=== PATIENT | male | born 1995 | race Caucasian/White ===

== ENCOUNTER 2021-02-20 21:25 | Emergency (ER) | payer BC ==
--- NOTE | 2021-02-20 21:41 | EDM.PDOC ---
ED HPI GENERAL MEDICAL PROBLEM - General Chief Complaint: ENT Problem Stated Complaint: POSSIBLE BROKEN NOSE Time Seen by Provider: 02/20/21 21:40 Source of Information: Reports: Patient History Limitations: Reports: No Limitations - History of Present Illness INITIAL COMMENTS - FREE TEXT/NARRATIVE: Jef is a 25 year old male who presents to ER with pain to the bridge of his no se. Was playing baseball this evening, up to bat, when he was struck by the pitch. States was wearing helmet and some of the ball did deflect off the helmet and the rest hit him to the left side of his nose. "took me to my knees but did not lose consciousness, just from the pain". Had a bloody nose after the event but that has now stopped. Worried as he had previous trauma to the left side of his face after being hit by a baseball and broke his left orbit. Relates that his left pupil does not react and is larger than the right since that injury. Denies any double or blurred vision. Has pain to the nose but otherwise denies any other injury or pain. Onset: Today, Sudden Duration: Minutes:, Constant Location: Reports: Face Quality: Reports: Ache Severity: Moderate Associated Symptoms: Denies: Confusion, Chest Pain, Cough, Fever/Chills, Headaches, Nausea/Vomiting, Shortness of Breath Treatments [employer]: Reports: Other (see below) Other Treatments [employer]: nasal packing Nose Pain Score (Numeric/FACES): 8 Past Medical History HEENT History: Reports: Other (See Below) (orbital fracture) Social & Family History - Tobacco Use Tobacco Use Status *Q: Unknown Ever Used Tobacco ED ROS ENT - Review of Systems Review Of Systems: See Below Constitutional: Denies: Fever, Chills, Malaise, Weakness HEENT: Reports: Nosebleed, Other (nose pain). Denies: Ear Discharge, Ear Pain, Rhinitis, Throat Pain Respiratory: Denies: Shortness of Breath Cardiovascular: Denies: Chest Pain, Lightheadedness Endocrine: Denies: Fatigue GI/Abdominal: Denies: Nausea, Vomiting Musculoskeletal: Denies: Neck Pain Skin: Reports: Wound Neurological: Reports: No Symptoms ED EXAM, ENT - Physical Exam Exam: See Below Exam Limited By: No Limitations General Appearance: Alert, WD/WN, Mild Distress Eye Exam: Right Eye: PERRL (history of previous injury to left eye), Bilateral Eye: EOMI Ears: Normal External Exam, Normal TMs Nose: Nasal Ecchymosis, Other (blood clots noted in bilateral nares. Tender to base of nasal bones. Has swelling to the left bridge of his nose. Abrased area noted in this area.) Mouth/Throat: Normal Inspection, Normal Oropharynx, Normal Teeth Head: Normocephalic Neck: Normal Inspection, Supple, Non-Tender Respiratory/Chest: Lungs Clear Cardiovascular: Regular Rate, Rhythm Course - Vital Signs Last Recorded V/S: Last Vital Signs Temp 98.2 F 02/20/21 21:30 Pulse 99 02/20/21 21:30 Resp 16 02/20/21 21:30 BP 147/92 H 02/20/21 21:30 Pulse Ox 99 02/20/21 21:30 - Orders/Labs/Meds Orders: Active Orders 24 hr Category Date Time Status Nasal Bone Min 3V [CR] Stat Exams 02/20/21 21:40 Ordered Meds: Medications Discontinued Medications Generic Name Dose Route Start Last Admin Trade Name Triston PRN Reason Stop Dose Admin Hydrocodone Bitart/Acetaminophen 1 tab 02/20/21 22:00 02/20/21 22:10 Acetaminophen/Hydrocodone 325-5 Mg Tab PO 02/20/21 22:01 1 tab ONETIME ONE Administration Hydrocodone Bitart/Acetaminophen 1 packet 02/20/21 22:50 Take Home: Acetaminophen/Hydrocodone 325-5 Mg, 5 Tab Pack PO 02/20/21 22:51 ONETIME ONE - Re-Assessments/Exams Free Text/Narrative Re-Assessment/Exam: 02/20/21 Xrays do show a minimally displaced nasal fracture. Will need to consult with Dr. Da Silva on Tuesday am and determine if further consult needed for ENT. Advised to ice over the weekend to better gauge displacement at that time. Departure - Departure Time of Disposition: 22:49 Disposition: Home, Self-Care 01 Condition: Fair Clinical Impression: Nasal bones, closed fracture Qualifiers: Encounter type: initial encounter Qualified Code(s): S02.2XXA - Fracture of nasal bones, initial encounter for closed fracture - Discharge Information *PRESCRIPTION DRUG MONITORING PROGRAM REVIEWED*: No *COPY OF PRESCRIPTION DRUG MONITORING REPORT IN PATIENT ADRIENNE: No Instructions: Nasal Fracture, [id number] Referrals: Xochitl Da Silva DO [Primary Care Provider] - Forms: ED Department Discharge Additional Instructions: 1. Ice to area frequently 2. Tylenol or ibuprofen for lesser pain, hydrocodone for more severe pain 3. Avoid further trauma 4. Contact Dr. Da Silva on Tuesday for possible referral to ENT for consult/evaluation Sepsis Event Note (ED) - Focused Exam Vital Signs: Vital Signs Temp Pulse Resp BP Pulse Ox 02/20/21 21:30 98.2 F 99 16 147/92 H 99 - My Orders Last 24 Hours: My Active Orders 02/20/21 21:40 Nasal Bone Min 3V [CR] Stat - Assessment/Plan Last 24 Hours: My Active Orders 02/20/21 21:40 Nasal Bone Min 3V [CR] Stat
[2021-02-20] MEDS ORDERED: Acetaminophen/HYDROcodone 325-5 MG Tab PO ONE (22:00)
[2021-02-20] MEDS ORDERED: Take Home: Acetaminophen/HYDROcodone 325-5 MG, 5 Tab Pack PO ONE (22:50)
--- NOTE | 2021-02-23 12:20 | CR ---
[id number] RAD/RAD Nasal Bones Exam: RAD Nasal Bones Clinical Data: TRAUMA COMPARISON: NO PREVIOUS SIMILAR EXAM IS AVAILABLE FINDINGS: There is a nondepressed nasal fracture IMPRESSION: NONDISPLACED NASAL FRACTURE Krish Campos MD 02/23/21 1844 Thank you for allowing us to participate in the care of your patient.
== END 2021-02-20 22:30 | disposition home or self-care (01) ==
LOC: VM.ED 21:25
DX: S02.2XXA Fracture of nasal bones, initial encounter for closed fracture (principal); W20.8XXA Other cause of strike by thrown, projected or falling object, initial encounter; Y93.64 Activity, baseball
CPT/HCPCS: 70160; 99283; 99283-25; A9270-GY